=== PATIENT | male | born 1965 | race Caucasian/White ===

== ENCOUNTER 2016-11-28 03:36 | Emergency (ER) | payer OTHER ==
[~2016-11-28] VITALS: Ht 182.9 cm; Wt 100.0 kg
[~2016-11-28 03:36] MED LIST: ANXIETY MEDICATION PO; INDO25CA PO; LISI-372 PO; SIMV40 PO
[2016-11-28 03:41] VITALS: BP 126/60; PULSE 78; RESP 16; TEMP 98.9; O2SAT 99
--- NOTE | 2016-11-28 03:49 | PD ---
HPI Chief Complaint: Pain: Acute or Chronic Time Seen by Provider: 03:48 Travel History International Travel<30 days: No Contact w/Intl Traveler<30days: No Traveled to known affect area: No History of Present Illness HPI Patient comes in for evaluation acute flareup of gout bilateral feet that began approximately 2 hours prior to arrival. Patient states he awoke with the pain. He states pain is making it difficult for him to walk. Pain feels similar to previous gout attacks is worse in the right foot than the left. Patient denies doing anything for this prior to coming to the emergency department. Denies any trauma, fevers, or radiation of the pain. Patient also has concerns over dysuria that began yesterday. Denies any discharge, testicular pain, back pain , abdominal pain, vomiting, or nausea. Please note H&P is obtained through the use of writing as the patient is hearing impaired [facility] Past Medical History Anxiety: Yes Cardiovascular Problems: Yes High Cholesterol: Yes Diminished Hearing: Yes (DEAF) Hypertension: Yes Musculoskeletal: Yes Psychiatric: Yes Past Surgical History Other Surgery: Yes (R FOREARM; R FEMUR, left chest trauma, tree implaled chest ) Social History Alcohol Use: No Tobacco Use: Yes (09/20 ppd) Substance Use: No Allergies-Medications (Allergen,Severity, Reaction): Coded Allergies: PEANUTS (Verified Allergy, Severe, Anaphylaxis, 11/28/16) Pt states his throat closes up when he ingests peanuts. Penicillin (Unverified Allergy, Unknown, 11/28/16) Reported Meds & Prescriptions Reported Meds & Active Scripts Active Indomethacin 50 Mg Cap 50 Mg PO Q8HR PRN Take with food, milk, or antacids to decrease stomach adverse effects. Reported Simvastatin 40 Mg Tab 40 Mg PO HS Lisinopril-Hctz 20-25 Mg Tab 1 Tab PO DAILY Review of Systems Except as stated in HPI: all other systems reviewed are Neg Physical Exam Narrative GENERAL: Well-developed, overly nourished, in no acute distress, and non-ill appearing. SKIN: Warm and dry. Nonerythematous, crepitus, induration, or fluctuation. HEAD: Atraumatic. Normocephalic. EYES: Pupils equal and round. EOMI. No scleral icterus. No injection or drainage. ENT: No nasal bleeding or discharge. Mucous membranes pink and moist. NECK: Trachea midline. Supple. No nuclear rigidity. CARDIOVASCULAR: Dorsal pulses 2+, tach, equal bilaterally. Capillary refill is 2 seconds. RESPIRATORY: No accessory muscle use. No respiratory distress. GASTROINTESTINAL: Abdomen soft, non-tender, nondistended. Hepatic and splenic margins not palpable. No pulsatile mass. MUSCULOSKELETAL: No obvious deformities. No clubbing. No cyanosis. No edema. Full range of motion. Patient reports tenderness palpated patient throughout bilateral feet. NEUROLOGICAL: Awake and alert. Motor grossly within normal limits. Normal speech. PSYCHIATRIC: Appropriate mood and affect; insight and judgment normal. Data Data Last Documented VS Vital Signs Date Time Temp Pulse Resp B/P Pulse Ox O2 Delivery O2 Flow Rate FiO2 11/28/16 03:44 16 11/28/16 03:41 98.9 78 126/60 99 Orders Ketorolac Inj (Toradol Inj) (11/28/16 04:00) Urinalysis - C+S If Indicated (11/28/16 03:47) Labs Laboratory Tests Test 11/28/16 04:00 Urine Color LIGHT-YELLOW Urine Turbidity CLEAR Urine pH 6.5 Urine Specific [place] 1.010 Urine Protein NEG mg/dL Urine Glucose (UA) NEG mg/dL Urine Ketones NEG mg/dL Urine Occult Blood NEG Urine Nitrite NEG Urine Bilirubin NEG Urine Urobilinogen LESS THAN 2.0 MG/DL Urine Leukocyte Esterase NEG Urine RBC 1 /hpf Urine WBC 2 /hpf Urine Mucus FEW /lpf Microscopic Urinalysis Comment CULT NOT INDICATED MDM Medical Decision Making Medical Screen Exam Complete: Yes Emergency Medical Condition: Yes Differential Diagnosis Gout, pseudogout, arthritis, dysuria, UTI, other Narrative Course The patient appears to have acute gouty arthritis involving the bilateral feet. There is no evidence to suggest infectious, septic joint at this time. There was no significant erythema, heat, swelling or fluctuance. The patient has had no distal or local trauma, cuts or abrasions. There has been no fever. The patient has had similar episodes and has a history of gout. There is no trauma to suspect contusion, strain or fracture. There is no clinical evidence to suggest bursitis, tendonitis, osteoarthritis, Rheumatoid arthritis, or septic arthritis. The patient was placed on NSAID medication and the patient was instructed on ice packs as well. The patient agreed with plan. Patient in no obvious distress upon re-evaluation. All pertinent laboratory result(s) discussed with patient. Patient was asked if they wanted to speak to my attending, which the patient did not wish to do at this time. Any questions/ concerns in reference to patient diagnosis/condition discussed and clarified prior to patient's discharge. Reinforced sheer importance of close follow up with patient's primary physician or primary care clinic. Instructed patient to return to ED immediately, if symptoms return/worsen. Pt showed understanding of above instructions. Further instructions and recommendations were detailed in discharge paperwork. Pt left without difficulty out of ED at discharge. Diagnosis Primary Impression: Gout attack Qualified Code: M10.9 - Acute gout of foot, unspecified cause, unspecified laterality Additional Impression: Dysuria Patient Instructions: Dysuria (ED), General Instructions, Gout (ED) Departure Forms: Tests/Procedures Additional Instructions: Follow-up with your primary care physician this week for reevaluation. Take all medication as prescribed. Apply ice to affected area 20 minutes per hour as needed for pain. Return to the emergency department if symptoms get worse. Med/Other Pt SpecificInfo: Prescription(s) given Scripts Indomethacin 50 Mg Cap50 Mg PO Q8HR PRN (PAIN SCALE 1 TO 10) #15 CAP Ref 0 Take with food, milk, or antacids to decrease stomach adverse effects. Prov:Liam Momin MD 11/28/16 Disposition: 01 DISCHARGE HOME Condition: Stable Nilo Eastman Nov 28, 2016 03:49
[2016-11-28] MEDS ORDERED: SIMV40TA PO (03:51)
[2016-11-28] MEDS ORDERED: LISI20TA3 PO (03:51)
[2016-11-28] MEDS ORDERED: KETOROLAC TROMETHAMINE 60 MG/2 ML (IM) VIAL IM ONE (04:00)
[2016-11-28 04:29] LABS: BLOOD, URINE NEG (NEG); GLUCOSE,URINE NEG (NEG); KETONE, URINE NEG (NEG); MUCUS URINE FEW /lpf (OCC); NITRITE,URINE NEG (NEG); PH, URINE 6.5 (5.0-8.5); URINE COLOR LIGHT-YELLOW (YELLW/STRAW)
[2016-11-28 04:32] LABS: COMMENT (UR) CULT NOT INDICATED; CULTURE IF INDICATED CULT NOT INDICATED
[2016-11-28] MEDS ORDERED: INDO50CA PO (04:54)
== END 2016-11-28 05:08 | disposition home or self-care (01) ==
LOC: NEPB 03:36
DX: M10.9 Gout, unspecified (principal); R30.0 Dysuria; I10 Essential (primary) hypertension; H91.90 Unspecified hearing loss, unspecified ear; Z72.0 Tobacco use
CPT/HCPCS: 81001; 96372; 99283; J1885